=== PATIENT | female | born 1950 | race Caucasian/White ===

== ENCOUNTER 2021-02-15 13:41 | Emergency (ER) | payer MEDICARE, SELFPAY ==
--- NOTE | ~2021-02-15 | XR_ITS ---
EXAMINATION: XR chest 2V DATE: 02/15/2021 13:55 INDICATION: Shortness of breath and cough. TECHNIQUE: Frontal and lateral views of the chest were obtained. COMPARISON: Chest 2 views 11/09/2017 FINDINGS: The chest demonstrates clear lungs without pneumonia, pleural effusion, or pneumothorax. Th e heart size is normal. There is chronic anterior wedging of multiple vertebral bodies near the thora columbar junction. IMPRESSION: 1. No acute cardiopulmonary disease. Reviewed, dictated and finalized at location A.
--- NOTE | 2021-02-15 13:43 | ED.SOB ---
HPI - SOB/Dyspnea General Chief Complaint: Upper Respiratory Infection Stated Complaint: diff breathing Time Seen by Provider: 02/15/21 13:43 Source: patient and RN notes reviewed History of Present Illness HPI Narrative: Patient is a 71-year-old female who presents the urgent care with complaints of some shortness of breath and difficulty breathing for the last week. Patient states that the last couple days has gotten worse. States that this happens once a year and she just needs an inhaler . Patient does have a history of A. fib and currently denies of chest pain. States that it is controlled with her beta-radha. Patient also reports of some sinus congestion and drainage and has been using nasal spray with a natural supplement without much improvement. Patient denies of any fevers, nausea, vomiting. Denies of any severe shortness of breath at rest. 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 Patient states that the tumor has not grown in size and she does follow-up with her physicians as scheduled. No other acute complaints. No acute distress noted. Patient aware of the plan of care. Some parts of this dictation were generated by voice recognition software and may contain typographical and/or grammatical inaccuracies. Related Data Home Medications Medication Instructions Recorded Confirmed bisoprolol fumarate mg 02/15/21 ezetimibe mg 02/15/21 rosuvastatin mg 02/15/21 Allergies Allergy/AdvReac Type Severity Reaction Status Date / Time Penicillins Allergy Unknown RASH Verified 11/09/17 12:12 Sulfa (Sulfonamide Allergy Unknown DELUSIONAL Verified 11/09/17 12:12 Antibiotics) Review of Systems Review of Systems: Narrative: CONSTITUTIONAL: Denies fever, chills, or sweats. EYES: Denies visual changes, redness, or discharge. ENT: Reports of sinus drainage and congestion CARDIOVASCULAR: Denies chest pain, palpitations, or edema. RESPIRATORY: Reports of cough and shortness of breath GASTROINTESTINAL: Denies abdominal pain, nausea, vomiting, or diarrhea. GENITOURINARY: Denies dysuria or hematuria. SKIN: Denies rash or itching. MUSCULOSKELETAL: Denies back pain, joint pain, or myalgia. NEUROLOGIC: Denies headache, numbness, or weakness. All other systems reviewed are negative, except as documented in HPI. [facility] Family History Family History (Updated 05/18/14 @ 07:13 by DOCTOR UNKNOWN) Other Carcinoma of colon Social History Social History Alcohol intake: never Comments At the time of my signature, I reviewed and agree with the nursing past medical, surgical, social, and family history. There is no relevant family history pertinent to the patient complaint. Exam Narrative: Exam Narrative: GENERAL: This is a well-nourished, well-developed patient, in no apparent distress. HEAD: normocephalic, atraumatic. EYES: PERRL. Sclera clear/white. Vision is grossly intact. EARS: External ears normal, auditory canals clear and without drainage, TMs normal without perforation. Hearing grossly intact. NOSE: External nose normal with no obvious nasal discharge, nares without redness, no rhinorrhea. THROAT: Mucous membranes moist, posterior pharynx clear. Moderate postnasal drainage NECK: Neck supple CARDIOVASCULAR: Regular rate, A. fib RESPIRATORY: Clear to auscultation. Diminished left lower lobe SKIN: warm, intact with no suspicious lesions or rash, good texture and turgor. NEURO: awake, alert, and oriented to person, place and time. There were no obvious focal neurologic abnormalities. EXTREMITIES: No clubbing, cyanosis, or edema. Course Vital Signs Vital signs: Vital Signs Temperature 97.3 F L 02/15/21 13:49 Pulse Rate 99 02/15/21 13:49 Respiratory Rate 12 02/15/21 13:49 Blood Pressure 156/93 H 02/15/21 13:49 Pulse Oximetry 97 02/15/21 13:49 Temperature 97.3 F L 02/15/21 13:50 Pulse Rate 99 02/15/21 13:50 Respiratory Rate 12
[2021-02-15 13:49] VITALS: BP 156/93; PULSE 99; RESP 12; TEMP 36.3; O2SAT 97
[2021-02-15 13:50] VITALS: BP 156/93; PULSE 99; RESP 12; TEMP 36.3; O2SAT 97
== END 2021-02-15 14:40 | disposition home or self-care (01) ==
PROVIDERS: Emergency Provider Nurse Practitioner Family
DX: J40 Bronchitis, not specified as acute or chronic (principal); I48.91 Unspecified atrial fibrillation; E78.00 Pure hypercholesterolemia, unspecified; I10 Essential (primary) hypertension
CPT/HCPCS: 71046; 99203; G0463

== ENCOUNTER → 2021-12-31 12:16 | Outpatient (CLI) | payer MEDICARE, SELFPAY ==
--- NOTE | ~2021-12-31 | XR_ITS ---
EXAMINATION: XR chest 2V DATE: 12/31/2021 12:36 INDICATION: Shortness of breath. TECHNIQUE: Frontal and lateral views of the chest were obtained. COMPARISON: Chest 2 views 02/15/2021 FINDINGS: There is a diffuse interstitial pattern in the lungs, consistent with mild pulmonary edema. No pleural effusion or pneumothorax. The heart size is normal. IMPRESSION: 1. Mild pulmonary edema. Reviewed, dictated and finalized at location A. IMPRESSION: 1. Mild pulmonary edema.
== END ==
DX: R06.02 Shortness of breath (principal); I48.20 Chronic atrial fibrillation, unspecified; J81.1 Chronic pulmonary edema
CPT/HCPCS: 71046

== ENCOUNTER 2021-12-31 15:34 | Observation (INO) | payer MEDICARE, SELFPAY ==
[2021-12-31] VITALS (18 sets, daily range): BP systolic 95–129; BP diastolic 62–100; PULSE 64–145; RESP 0–23; TEMP 36.2–36.4; O2SAT 92–98; BMI 33.7
--- NOTE | 2021-12-31 16:10 | ECG_ITS ---
Measurements Intervals [place] Rate: 64 P: 24 PA: 140 QRS: -56 QRSD: 129 T: 7 QT: 440 QTc: 455 Interpretive Statements SINUS RHYTHM POSSIBLE LEFT ATRIAL ENLARGEMENT [-0.1mV P WAVE IN V1/V2] RIGHT BUNDLE BRANCH BLOCK [120+ ms QRS DURATION, UPRIGHT V1, 40+ ms S IN I/aVL/V4/V5/V6] LEFT ANTERIOR FASCICULAR BLOCK [QRS AXIS <= -45, QR IN I, RS IN II] ABNORMAL ECG NO PREVIOUS ECG AVAILABLE FOR COMPARISON Electronically Signed On 12-31-2021 18:09:10 CDT by Loc Giles M.D.
[2021-12-31 17:09] LABS: Appearance Urine Clear (Clear); Bilirubin Urine Negative (Negative); Glucose Urine UA Negative (Negative); Ketones Urine Negative (Negative); Leukocyte Esterase Ur Negative LEU/UL (Negative); Nitrate Urine Negative (Negative); Protein Urine Negative (Negative); Urobilinogen Urine 0.2 mg/dL (<2.0); pH Urine 6.5 (5.0-9.0)
--- NOTE | 2021-12-31 17:10 | ED.SOB ---
HPI - SOB/Dyspnea General Chief Complaint: Shortness of Breath/Dyspnea <Kelly Garduno PA-C - Last Filed: 12/31/21 19:33> Stated Complaint: fluid on my lungs <EVA Gastelum Last Filed: 12/31/21 19:33> Time Seen by Provider: 12/31/21 16:39 <Kelly Garduno PA-C - Last Filed: 12/31/21 19:33> Source: patient <EVA Gastelum Last Filed: 12/31/21 19:33> Mode of arrival: wheelchair <EVA Gastelum Last Filed: 12/31/21 19:33> Limitations: no limitations <EVA Gastelum Last Filed: 12/31/21 19:33> History of Present Illness HPI Narrative: This is a 71 year old female that presents to the ER for shortness of breath. Ongoing over the last 4 days. Reports earlier this month she had some swelling of her lower extremities. She was placed on Lasix for a couple of days with relief. Reports over the last couple of days she has had worsening exertional dyspnea. Her primary doctor gave her a dose of PO Lasix today and sent her for a chest x-ray. Chest x-ray showed some fluid overload and patient was sent to the ER for further evaluation. Denies fever, chest pain, or current lower extremity edema. <Kelly Garduno PA-C - Last Filed: 12/31/21 19:33> Related Data Home Medications: Home Medications Medication Instructions Recorded Confirmed bisoprolol fumarate mg 02/15/21 ezetimibe mg 02/15/21 rosuvastatin mg 02/15/21 <EVA Gastelum Last Filed: 12/31/21 19:33> Allergies/Adverse Reactions: Allergies Allergy/AdvReac Type Severity Reaction Status Date / Time Penicillins Allergy Unknown RASH Verified 11/09/17 12:12 Sulfa (Sulfonamide Allergy Unknown DELUSIONAL Verified 11/09/17 12:12 Antibiotics) <EVA Gastelum Last Filed: 12/31/21 19:33> Review of Systems Review of Systems: CONSTITUTIONAL: Denies fever CARDIOVASCULAR: Reports edema. Denies chest pain RESPIRATORY: Reports dyspnea. <Kelly Garduno PA-C - Last Filed: 12/31/21 19:33> All systems reviewed & are unremarkable except as noted in HPI and below <Kelyl Garduno PA-C - Last Filed: 12/31/21 19:33> PMFSH Past Medical History Medical History: Medical History (Updated 12/31/21 @ 19:30 by Kelly Garduno PA-C) History of atrial fibrillation History of hyperlipidemia History of hypothyroidism <Kelly Garduno PA-C - Last Filed: 12/31/21 19:33> Family History Family History: Family History (Updated 05/18/14 @ 07:13 by DOCTOR UNKNOWN) Other Carcinoma of colon <Kelly Garduno PA-C - Last Filed: 12/31/21 19:33> Social History Social History: Social History Alcohol intake: never <Kelly Garduno PA-C - Last Filed: 12/31/21 19:33> Exam Narrative: GENERAL: Elderly, well-nourished, and in no acute distress. HEAD: Normocephalic, atraumatic. EYES: EOMI. ENT: Mucous membranes moist. Oropharynx without tonsillar hypertrophy exudate or other lesions. CHEST: No respiratory distress. Rales noted at the lung bases. No wheezes or rhonchi HEART: Regular rate and rhythm. No murmur heard. Normal peripheral pulses. EXTREMITIES: Normal range of motion. No edema. SKIN: Warm, dry, no rash. NEURO: No focal deficits. Alert and oriented x3. PSYCH: Normal mood and affect <Kelly Garduno PA-C - Last Filed: 12/31/21 19:33> Course [employer]/PA Physician Supervision For this patient encounter, I reviewed the ELEMENTARY SCHOOL TUTOR or PA documentation, treatment plan, and medical decision making; and I had [id number] time with this patient. <Jeff Welsh MD - Last Filed: 12/31/21 19:42> Consultations Consultation #1: Spoke with hospitalist about patient and work-up who accepts admission <Kelly Garduno PA-C - Last Filed: 12/31/21 19:33> Date: 12/31/21 <Kelly Garduno PA-C - Last Filed: 12/31/21 19:33> Time: 19:33 <Kelly Garduno PA-C - Last Filed: 12/31/21 19:33> Vital Signs Vital signs: Vital Signs Temp
[2021-12-31 17:12] LABS: Color Urine Light Yellow (Yellow)
--- NOTE | 2021-12-31 17:12 | PC.NURSE ---
PT went to CT.
[2021-12-31 17:13] LABS: Add Urine Microscopic? YES; Blood Urine Trace-Intact (Negative)
[2021-12-31 17:19] LABS: RBC Urine 0-2 /hpf (0-2)
[2021-12-31 17:47] LABS: Basophils Percent Auto 0.4 % (0.2-1.2); Eosinophils Absolute Auto 0.2 K/mm3 (0-0.3); Eosinophils Percent Auto 3.1 % (0-4.4); Hematocrit 37.1 % (37.0-47.0); Hemoglobin 11.9 g/dL (12.0-15.0); Lymphocytes Absolute Auto 1.45 K/mm3 (0.9-3.2); Lymphocytes Percent Auto 26.5 % (18.3-44.2); Mean Corpuscular HGB Conc 32.1 g/dl (32-36); Mean Corpuscular Hemoglobin 30.4 pg (26-34); Mean Corpuscular Volume 94.9 fl (80-100); Mean Platelet Volume 9.5 fl (7.4-10.4); Monocytes Absolute Auto 0.7 K/mm3 (0.1-0.6); Neutrophils Absolute Auto 3.2 K/mm3 (1.3-6.7); Platelet Count Result 225 k/mm3 (150-375); Red Blood Count 3.91 M/mm3 (4.2-5.4); Red Cell Distribution Width 13.6 % (11.5-14.5); White Blood Count 5.5 K/mm3 (4.5-10.0)
[2021-12-31 18:22] LABS: Alanine Aminotransferase 30 U/L (4-35); Albumin Level 4.3 g/dL (3.5-5.1); Alkaline Phosphatase 82 U/L (38-126); Anion Gap 9 mmol/L (8-16); Aspartate Amino Transferase 31 U/L (14-36); Bilirubin,Total 1.2 mg/dL (0.2-1.3); Blood Urea Nitrogen 22 mg/dL (7-17); Calcium 9.4 mg/dL (8.4-10.2); Carbon Dioxide 28 mmol/L (22-30); Chloride 101 mmol/L (98-107); Estimated Glomerular Filt Rate > 60; Glucose 90 mg/dL (65-110); Potassium 3.9 mmol/L (3.4-5.0); Sodium 138 mmol/L (137-145)
[2021-12-31 18:31] LABS: NT Pro B Type Natriuretic Pept 3420 pg/mL (5-100)
[2021-12-31] MEDS: FUROSEMIDE INJ 40 MG/4 ML VIAL IV PUSH (19:06)
--- NOTE | 2021-12-31 19:06 | PC.NURSE ---
Assuming care of pt.
--- NOTE | 2021-12-31 19:53 | PM.IMHP ---
H&P: HPI History of Present Illness Date/Time: 12/31/21 19:53 Chief Complaint: Shortness of breath. Narrative: This is a 71-year-old female with past medical history significant for atrial fibrillation, rate controlled, anticoagulated, hypothyroidism, dyslipidemia. Patient comes to the emergency room due to shortness of breath. Patient had been placed on Lasix due to bilateral lower extremity edema which initially helped. Patient denies any palpitations, dizziness, near-syncope, syncope, palpitations, chest pain, has had PND and orthopnea. Has not been able to sleep well due to waking up in the middle of the night with shortness of breath. Patient denies any fevers rigors chills, nausea, vomiting, abdominal pain or diarrhea. Preliminary workup was significant for chest x-ray with lung edema, elevated brain natriuretic peptide. Decision has been made to admit the patient to for the evaluation management and treatment. Review of Systems Review of Systems: Shortness of breath, bilateral lower extremity edema, PND, orthopnea. Constitutional: Constitutional: Denies chills, Denies fatigue, Denies fever(s), Denies malaise and Denies weakness Eyes: Eyes: Denies change in vision ENT: Denies dysphagia, Denies vertigo, Denies dizziness, Denies nasal congestion, Denies nasal discharge, Denies nasal obstruction and Denies odynophagia Cardiovascular: Cardiovascular: Denies chest pain, Reports pedal edema, Reports leg edema, Denies lightheadedness, Denies radiating jaw, neck or arm pain, Denies palpitations, Reports dyspnea on exertion, Reports orthopnea and Reports paroxysmal nocturnal dyspnea Respiratory: Respiratory: Reports cough, Denies excessive phlegm production, Denies dyspnea and Denies wheezing Gastrointestinal: Gastrointestinal: Denies abdominal pain, Denies dyspepsia, Denies heartburn, Denies diarrhea and Denies nausea Genitourinary: Genitourinary: Denies dysuria Musculoskeletal: Musculoskeletal: Denies myalgias and Denies arthralgias Integumentary/Breasts: Skin/Breast: Denies rash Neurologic: Denies vertigo, Denies dizziness, Denies focal weakness and Denies Sensory deficit (Neuro) Psychiatric: Psychiatric: Reports no additional psychiatric complaints and Reports as per HPI Endocrine: Endocrine: Denies cold intolerance, Denies heat intolerance, Denies polyphagia, Denies polydipsia and Denies palpitations Hematologic/Lymphatic: Hematologic/Lymphatic: Reports no additional hematologic/lymphatic complaints and Reports as per HPI Allergic/Immunologic: Allergic/Immunologic: Reports no additional allergic/immunologic complaints and Reports as per HPI [facility] Past Medical History Medical History (Updated 01/01/22 @ 02:55 by Dawson Cole MD) History of atrial fibrillation History of hyperlipidemia History of hypothyroidism Family History Family History (Updated 12/31/21 @ 21:20 by Nedra Watt RN) Grandparent Carcinoma of colon Social History Social History Smoking status: Never smoker Second hand tobacco smoke exposure: No Alcohol intake: never Substance use: never Substance use type: does not use Spiritual care concerns: No Meds Home Medications and Allergies Home Medications Medication Instructions Recorded Confirmed Type albuterol sulfate 2 puff INHALATION QID PRN #8 gm 02/15/21 12/31/21 Rx bisoprolol fumarate 5 mg PO HS 02/15/21 12/31/21 History apixaban [Eliquis] 2.5 mg PO BID 12/31/21 12/31/21 History furosemide 60 mg PO DAILY 12/31/21 12/31/21 History levothyroxine 25 mcg PO DAILY 12/31/21 12/31/21 History Allergies Allergy/AdvReac Type Severity Reaction Status Date / Time Penicillins Allergy Unknown RASH Verified 11/09/17 12:12 Sulfa (Sulfonamide Allergy Unknown DELUSIONAL Verified 11/09/17 12:12 Antibiotics) Vital Signs Vital Signs - 24 hr 12/31/21 15:36 12/31/21 15:54 12/31/21 16:00 Temperature 97.6 F Pulse Rate 64 68 68 Respiratory Rate 21 H 23
--- NOTE | 2021-12-31 20:33 | ECG_ITS ---
Measurements Intervals [place] Rate: 130 P: [place]: 0 QRS: -74 QRSD: 126 T: 42 QT: 355 QTc: 523 Interpretive Statements ATRIAL FIBRILLATION WITH RAPID VENTRICULAR RESPONSE RIGHT BUNDLE BRANCH BLOCK [120+ ms QRS DURATION, UPRIGHT V1, 40+ ms S IN I/aVL/V4/V5/V6] LEFT ANTERIOR FASCICULAR BLOCK [QRS AXIS <= -45, QR IN I, RS IN II] ABNORMAL ECG COMPARED TO ECG 12/31/2021 16:14:33 ATRIAL FIBRILLATION NOW PRESENT Electronically Signed On 01-01-2022 15:44:58 CDT by Loc Giles M.D.
--- NOTE | 2021-12-31 20:39 | PC.NURSE ---
RN notified Dr. Cole of pt's heart rate change now 130 EKG has been ordered. No new orders from .
[2021-12-31 21:04] LABS: Free T4 Free Thyroxine Reflex 1.32 ng/dL (0.78-2.19)
[2021-12-31] MEDS: bisoproloL fumarate 5 MG TABLET PO (21:57)
[2021-12-31 22:03] LABS: Total Triiodothyronine (T3) 1.17 NG/ML (0.97-1.69)
[2022-01-01] VITALS (9 sets, daily range): BP systolic 90–100; BP diastolic 57–59; PULSE 59–93; RESP 16–20; TEMP 36.2–36.4; O2SAT 93–97
[2022-01-01] MEDS: LEVOTHYROXINE SODIUM 25 MCG TABLET PO (05:51)
--- NOTE | 2022-01-01 06:00 | ECHO_ITS ---
Patient Info Name: Jenise Spicer Age: 71 years : 1950 Gender: Female Ht: 61 in Wt: 178 lbs BSA: 1.90 m2 HR: 63 bpm BP: 100 / 58 mmHg Heart Rhythm: Sinus Rhythm Technical Quality: Fair Exam Date: 01/01/2022 8:21 AM Exam Location: Echo Lab Patient Status: Outpatient Admit Date: 12/31/2021 Staff Ordering Physician: Kelly Garduno PA-C Administration Physician: Kiersten Breen RDCS Attending Provider: Belén Bobo NP Referring Physician: Shaan RIOJAS; Exam Type: CA echo doppler color flow Study Info Indications - pulmonary edema, sob Complete two-dimensional, color flow and Doppler transthoracic echocardiogram is performed. Summary 1. Complete two-dimensional, color flow and Doppler transthoracic echocardiogram is performed. 2. Left ventricular systolic function is mildly reduced, estimated at 45-50%. Global hypokinesis with more pronounced mid anterolateral and apical lateral hypokinesis. 3. Left ventricular chamber dimension is mildly enlarged. 4. There is no increased left ventricular wall thickness. 5. The left ventricular diastolic function is grade II diastolic dysfunction. 6. Right ventricular chamber dimension is mildly enlarged. 7. Left atrial chamber dimension is severely enlarged. 8. Right atrial chamber dimension is moderately enlarged. 9. There is mild mitral valve regurgitation. 10. There is mild to moderate tricuspid valve regurgitation. 11. Moderate pulmonary hypertension, estimated pulmonary arterial systolic pressure is 54 mmHg. 12. There is mild aortic valve stenosis. Left Ventricle Left ventricular systolic function is mildly reduced, estimated at 45-50%. Global hypokinesis with more pronounced mid anterolateral and apical lateral hypokinesis. Left ventricular chamber dimension is mildly enlarged. There is no increased left ventricular wall thickness. The left ventricular diastolic function is grade II diastolic dysfunction. Right Ventricle Right ventricular chamber dimension is mildly enlarged. Right ventricular systolic function is normal. Left Atria Left atrial chamber dimension is severely enlarged. Right Atria Right atrial chamber dimension is moderately enlarged. Atrial Septum Intact interatrial septum visualized by color flow imaging. Aortic Valve The aortic valve is trileaflet. There is moderate aortic valve sclerosis. There is mild aortic valve stenosis. There is trace aortic valve regurgitation. There is mild aortic valve calcification. Pulmonic Valve The pulmonic valve is normal. There is no pulmonic valve stenosis. There is trace pulmonic regurgitation. Mitral Valve The mitral valve has thickened leaflets. There is no mitral valve stenosis. There is mild mitral valve regurgitation. Tricuspid Valve The tricuspid valve leaflets are normal. There is no significant tricuspid valve stenosis. There is mild to moderate tricuspid valve regurgitation. Moderate pulmonary hypertension, estimated pulmonary arterial systolic pressure is 54 mmHg. Pericardium/Pleural The pericardium appears normal. There is no pericardial effusion. Inferior Vena Cava Normal inferior vena cava with <50% collapse upon inspiration consistent with elevated right atrial pressure, 10 mmHg. Aorta The aortic root size at the sinus of Valsalva is normal. Left Ventricular Outflow Tract Name Value Lillie
--- NOTE | 2022-01-01 08:08 | PM.IMPN ---
Progress Note: A&P Assessment and Plan (1) CHF exacerbation: Qualifiers: Heart failure type: unspecified Qualified Code(s): I50.9 - Heart failure, unspecified Code(s): I50.9 - Heart failure, unspecified Status: Acute Assessment and Plan: Slightly elevated brain natriuretic peptide Echocardiogram in a.m. Daily intake and output Daily weights Aggressive diuresis Daily BMP Supportive care Continue to monitor (2) Atrial fibrillation with RVR: Code(s): I48.91 - Unspecified atrial fibrillation Status: Acute Assessment and Plan: Resume home meds Rate controlled and anticoagulated (3) Hypothyroidism: Code(s): E03.9 - Hypothyroidism, unspecified Status: Acute Assessment and Plan: Continue levothyroxine. Subjective Date/time seen: 01/01/22 08:08 Review of Systems Review of Systems: All systems reviewed & are unremarkable except as noted in HPI and below Constitutional: Constitutional: Denies chills, Denies fatigue, Denies fever(s), Denies malaise and Denies weakness Eyes: Eyes: Denies change in vision ENT: Denies dysphagia, Denies vertigo, Denies dizziness, Denies nasal congestion, Denies nasal discharge, Denies nasal obstruction and Denies odynophagia Cardiovascular: Cardiovascular: Denies chest pain, Reports pedal edema, Reports leg edema, Denies lightheadedness, Denies radiating jaw, neck or arm pain, Denies palpitations, Denies dyspnea, Reports dyspnea on exertion, Reports orthopnea and Reports paroxysmal nocturnal dyspnea Respiratory: Respiratory: Reports cough, Denies excessive phlegm production, Denies dyspnea, Reports dyspnea on exertion and Denies wheezing Gastrointestinal: Gastrointestinal: Denies abdominal pain, Denies dysphagia, Denies dyspepsia, Denies heartburn, Denies diarrhea, Denies nausea and Denies odynophagia Genitourinary: Genitourinary: Denies dysuria Musculoskeletal: Musculoskeletal: Denies myalgias and Denies arthralgias Integumentary/Breasts: Skin/Breast: Denies rash Neurologic: Denies vertigo, Denies dizziness, Denies focal weakness, Denies Sensory deficit (Neuro) and Denies weakness Psychiatric: Psychiatric: Reports no additional psychiatric complaints and Reports as per HPI Endocrine: Endocrine: Denies cold intolerance, Denies fatigue, Denies heat intolerance, Denies polyphagia, Denies polydipsia and Denies palpitations Hematologic/Lymphatic: Hematologic/Lymphatic: Reports no additional hematologic/lymphatic complaints and Reports as per HPI Allergic/Immunologic: Allergic/Immunologic: Reports no additional allergic/immunologic complaints, Reports as per HPI and Denies wheezing Exam Narrative: Shortness of breath, bilateral lower extremity edema. Const: General: cooperative, comfortable, no acute distress, well developed, alert and awake Nutritional Appearance: average body habitus Orientation/consciousness: patient oriented x3 HENMT: Head: normal to inspection, normocephalic and atraumatic Ears: hearing grossly normal bilaterally General nose exam: Normal external nose present Face and sinus: normal facial exam Eyes: General: appearance normal, both eyes and all related structures Alignment and Position: alignment normal Sclera: sclerae normal Pupils: Equal, round and reactive pupils present EOM: EOMs intact bilaterally Neck: Neck: normal visual inspection, full ROM, no lymphadenopathy, supple and no JVD Thyroid: thyroid normal Lymphatic: no lymphadenopathy noted Resp: Effort & Inspection: normal respiratory effort and able to speak in complete sentences Auscultation: clear to auscultation bilaterally, crackles, no rales, no rhonchi and no wheezes Cardio: Jugular venous distension: no JVD Rate: tachycardic Rhythm: abnormal rhythm irregularly irregular Heart sounds: S1 normal heart sound present and S2 normal heart sound present : General: Yes deferred Skin: Rashes: no rashes Wounds: no wounds Neuro:
[2022-01-01] MEDS: APIXABAN 2.5 MG TABLET PO (08:59)
[2022-01-01] MEDS: FUROSEMIDE INJ 40 MG/4 ML VIAL IV PUSH (09:00)
--- NOTE | 2022-01-01 13:13 | ECG_ITS ---
Measurements Intervals [place] Rate: 68 P: 21 [place]: 133 QRS: -66 QRSD: 118 T: -15 QT: 418 QTc: 445 Interpretive Statements SINUS RHYTHM LEFT ATRIAL ENLARGEMENT [-0.15mV P WAVE IN V1/V2] S1-S2-S3 PATTERN, CONSISTENT WITH PULMONARY DISEASE, RVH, OR NORMAL VARIANT PATTERN CONSISTENT WITH PULMONARY DISEASE RIGHT BUNDLE BRANCH BLOCK [120+ ms QRS DURATION, UPRIGHT V1, 40+ ms S IN I/aVL/V4/V5/V6] LEFT ANTERIOR FASCICULAR BLOCK [QRS AXIS <= -45, QR IN I, RS IN II] ABNORMAL ECG Electronically Signed On 01-01-2022 16:04:13 CDT by Loc Giles M.D.
[2022-01-01 13:39] LABS: Hematocrit 40.3 % (37.0-47.0); Hemoglobin 13.2 g/dL (12.0-15.0); Mean Corpuscular HGB Conc 32.8 g/dl (32-36); Mean Corpuscular Hemoglobin 30.2 pg (26-34); Mean Corpuscular Volume 92.2 fl (80-100); Mean Platelet Volume 9.4 fl (7.4-10.4); Platelet Count Result 254 k/mm3 (150-375); Red Blood Count 4.37 M/mm3 (4.2-5.4); Red Cell Distribution Width 13.6 % (11.5-14.5); White Blood Count 5.8 K/mm3 (4.5-10.0)
[2022-01-01 13:51] LABS: Alanine Aminotransferase 25 U/L (4-35); Albumin Level 3.9 g/dL (3.5-5.1); Alkaline Phosphatase 77 U/L (38-126); Anion Gap 6 mmol/L (8-16); Aspartate Amino Transferase 26 U/L (14-36); Bilirubin,Total 1.2 mg/dL (0.2-1.3); Blood Urea Nitrogen 23 mg/dL (7-17); Calcium 8.9 mg/dL (8.4-10.2); Carbon Dioxide 33 mmol/L (22-30); Chloride 97 mmol/L (98-107); Estimated CRCL calculation 53 ml/min; Estimated Glomerular Filt Rate > 60; Glucose 107 mg/dL (65-110); Phosphorus 3.9 mg/dL (2.5-4.5); Potassium 3.6 mmol/L (3.4-5.0); Sodium 136 mmol/L (137-145)
[2022-01-01 13:59] LABS: NT Pro B Type Natriuretic Pept 1410 pg/mL (5-100)
[2022-01-01 14:02] LABS: Troponin I < 0.012 ng/mL (0.000-0.034)
--- NOTE | 2022-01-01 16:15 | PM.DS ---
DS: Admitting Diagnosis Discharge Date 01/01/22 Admitting Diagnosis Acute on chronic CHF exacerbation, hypothyroidism DS: Discharge Diagnosis Discharge Diagnosis (1) CHF exacerbation: Qualifiers: Heart failure type: unspecified Qualified Code(s): I50.9 - Heart failure, unspecified Code(s): I50.9 - Heart failure, unspecified Status: Acute Assessment and Plan: Slightly elevated brain natriuretic peptide improved from 3400 to 1400 Echocardiogram showed LV systolic function is mildly reduced, estimated at 45-50% and Moderate pulmonary hypertension, estimated pulmonary arterial systolic pressure is 54 mmHg. Review these echo findings with the patient and instructed her to follow-up with her asphalt raker within the next 1-2 weeks. Daily intake and output Daily weights Aggressive diuresis at ED admission, CXR improved/stable. Continued daily 60mg lasix PO - educated that she cannot take Lasix whenever she feels like it, that she must take it daily for it to work. 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 (2) Atrial fibrillation with RVR: Code(s): I48.91 - Unspecified atrial fibrillation Status: Acute Assessment and Plan: Resume home meds Rate controlled and anticoagulated (3) Hypothyroidism: Code(s): E03.9 - Hypothyroidism, unspecified Status: Acute Assessment and Plan: Continue levothyroxine. DS: Summary Hospital Course Hospital Course: Patient took a large dose of Lasix p.o. at home due to worsening shortness of breath, then she came to the ER where she was given more Lasix IV. She was admitted to monitor her blood pressures and her kidney function overnight. She was found to be stable and had returned to baseline today. Her echo did show changes that she was informed of and will follow-up with her asphalt raker outpatient. She has been adequately diuresed at this time and is not having any difficulty with breathing or shortness of breath or respiratory function even during activities and ADLs. Orthostatic vital signs were obtained and she did not have any drop in blood pressure with standing, she did not have any dizziness or lightheadedness. Her chest x-ray showed stability. She would like to go home today and follow up with her primary care provider and asphalt raker within the next 1-2 weeks. Time Spent with Patient Time attestation: Total time spent providing and/or coordinating discharge services: 90 minutes Exam Narrative: No pitting edema, small generalized edema. No shortness of breath no cough and no dyspnea with exertion or ambulation Const: General: cooperative, comfortable, no acute distress, well developed, alert and awake Nutritional Appearance: average body habitus Orientation/consciousness: patient oriented x3 HENMT: Head: normal to inspection, normocephalic and atraumatic Ears: hearing grossly normal bilaterally General nose exam: Normal external nose present Face and sinus: normal facial exam Eyes: General: appearance normal, both eyes and all related structures Alignment and Position: alignment normal Sclera: sclerae normal Pupils: Equal, round and reactive pupils present EOM: EOMs intact bilaterally Neck: Neck: normal visual inspection, full ROM, no lymphadenopathy, supple and no JVD Thyroid: thyroid normal Lymphatic: no lymphadenopathy noted Resp: Effort & Inspection: normal respiratory effort and able to speak in complete sentences Auscultation: clear to auscultation bilaterally, crackles, no rales, no rhonchi and no wheezes Cardio: Jugular venous distension: no JVD Rate: regular rate Rhythm: regular rhythm Heart sounds: S1 normal heart sound present, S2 normal heart sound present and no murmurs : General: Yes deferred Skin: Rashes: no rashes Wounds: no wounds Neuro: General: patient oriented x3, CN's II-XI intact bilaterally and Unable to assess gait Cranial nerves: Yes CN's II-XII i
== END 2022-01-01 16:49 | disposition home or self-care (01) ==
LOC: ANHED 19:30 → ANH3MEDSUR 20:28
PROVIDERS: Physician Assistant; Admitting Provider Internal Medicine; Emergency Provider Emergency Medicine; PCP Family Medicine; Visit Provider Nurse Practitioner
DX: I50.9 Heart failure, unspecified (principal); R06.02 Shortness of breath; I48.91 Unspecified atrial fibrillation; E03.9 Hypothyroidism, unspecified; E78.5 Hyperlipidemia, unspecified; Z79.51 Long term (current) use of inhaled steroids; Z79.01 Long term (current) use of anticoagulants
CPT/HCPCS: 36415; 71046; 80053; 81001; 83735; 83880; 84100; 84439; 84443; 84480; 84484; 85025; 85027; 93005; 93306; 96374; 96376; 99285; A9270; G0378; J1940